=== PATIENT | male | born 1985 | race Caucasian/White ===

== ENCOUNTER 2018-02-21 13:59 | Emergency (ER) | payer SELFPAY ==
[2018-02-21 14:05] VITALS: BP 120/82
[2018-02-21 14:30] LABS: CLARITY,URINE CLOUDY; COLOR,URINE PINK
[2018-02-21 14:31] LABS: BACTERIA,URINE 0 /HPF (0-FEW); BILIRUBIN,URINE NEG (NEG); GLUCOSE,URINE NEG (NEG); NITRITE,URINE NEG (NEG); RBC,URINE TNTC /HPF (0-2); UROBILINOGEN,URINE 1 mg/dL (0.2 mg/dL); WBC,URINE OCC /HPF (0-4)
--- NOTE | 2018-02-21 15:45 | PHYS DOC ---
Past History Past Medical History: No Pertinent History Past Surgical History: No Surgical History Alcohol Use: None Drug Use: None Adult General Chief Complaint Chief Complaint: BLOOD IN URINE [facility] HPI 32-year-old male patient without medical problem who became sexually active for the last 2 days after released from shelter after several years complaining of sudden onset hematuria and urinary frequency for the last 1 hour pain in left lower quadrant with urination without nausea and vomiting, flank pain, penile discharge or pain, fever and chills. Patient complaining of chronic lower back pain. Review of Systems Review of Systems Constitutional: Denies fever or chills [] Eyes: Denies change in visual acuity, redness, or eye pain [] HENT: Denies nasal congestion or sore throat [] Respiratory: Denies cough or shortness of breath [] Cardiovascular: No additional information not addressed in HPI [] GI: Denies abdominal pain, nausea, vomiting, bloody stools or diarrhea [] : Denies dysuria or hematuria [] Musculoskeletal: Denies back pain or joint pain [] Integument: Denies rash or skin lesions [] Neurologic: Denies headache, focal weakness or sensory changes [] Endocrine: Denies polyuria or polydipsia [] All other systems were reviewed and found to be within normal limits, except as documented in this note. Physical Exam Physical Exam , bilateral external ears normal, oropharynx moist, no oral exudates, nose normal. [] Eyes: PERRLA, EOMI, conjunctiva normal, no discharge. [] Neck: Normal range of motion, no tenderness, supple, no stridor. [] Cardiovascular:Heart rate regular rhythm, no murmur [] Lungs & Thorax: Bilateral breath sounds clear to auscultation [] Abdomen: Bowel sounds normal, soft, no tenderness, no masses, no pulsatile masses, genital exam with present of residential program worker was unremarkable. [] Skin: Warm, dry, no erythema, no rash. [] Back: No tenderness, no CVA tenderness. [] Extremities: No tenderness, no cyanosis, no clubbing, ROM intact, no edema. [] Neurologic: Alert and oriented X 3, normal motor function, normal sensory function, no focal deficits noted. [] Psychologic: Affect normal, judgement normal, mood normal. [] Current Patient Data Vital Signs Vital Signs Date Time Temp Pulse Resp B/P (MAP) Pulse Ox O2 Delivery O2 Flow Rate FiO2 02/21/18 14:05 98.3 89 16 98 Room Air Lab Results Laboratory Tests Test 02/21/18 14:05 Urine Collection Type Void Urine Color [place] Urine Clarity Cloudy Urine pH 7.5 Urine Specific [place] 1.025 Urine Protein >100 mg/dl (NEG-TRACE) Urine Glucose (UA) Neg mg/dL (NEG) Urine Ketones (Stick) Neg mg/dL (NEG) Urine Blood Large (NEG) Urine Nitrite Neg (NEG) Urine Bilirubin Neg (NEG) Urine Urobilinogen Dipstick 1 mg/dL (0.2 mg/dL) Urine Leukocyte Esterase Small (NEG) Urine RBC Tntc /HPF (0-2) Urine WBC Occ /HPF (0-4) Urine Squamous Epithelial Cells None /LPF Urine Bacteria 0 /HPF (0-FEW) EKG EKG [] Radiology/Procedures Radiology/Procedures [[address] [address] IMAGING REPORT Signed PATIENT: BARRINGTON MARAVILLA ACCOUNT: [id number] : 1985 LOCATION: ER AGE: 32 SEX: M EXAM STATUS: PRE ER ORD. PHYSICIAN: MARY HALL MD REASON: hematuria PROCEDURE: CT ABDOMEN PELVIS WO CONTRAST PQRS Compliance Statement: One or more of the following individualized dose reduction techniques were utilized for this examination: 1. Automated exposure control 2. Adjustment of the mA and/or kV according to patient size 3. Use of iterative reconstruction technique CT ABDOMEN PELVIS WO CONTRAST Clinical Indication: hematuria, abdominal pain x1 day. Comparison: None. Technique: Helical CT imaging of the abdomen and pelvis is performed without IV or oral contrast. Findings: Evaluation of solid organs and bowel is limited without oral and IV contrast, decreasing sensitivity for detection of pathology. Lung bases are clear. Cardiac size normal. Calcified granulomas in the spleen. The liver, gallbladder, pancreas, adrenal glands, and abdominal aorta caliber are normal. Please note noncontrast CT is not sensitive for evaluation of pyelonephritis. There is no renal, ureteral, or bladder calculus. There is a 2 mm calcification centrally in the prostate just inferior to the bladder, cannot exclude that this is in the prostatic urethra, image 132. There is no hydronephrosis. Stomach unremarkable. No dilated small bowel. The appendix is normal caliber. No colon wall thickening. No abdominal adenopathy or free fluid. Urinary bladder wall is not thickened. Prostate size normal. No pelvic free fluid. Bilateral L5 spondylolysis. There is grade 1 anterolisthesis of L5 on S1. There is minimal grade 1 retrolisthesis of L4 on L5. IMPRESSION: 1. No hydronephrosis or ureteral calculus. There is a 2 mm calcification centrally in the prostate just inferior to the bladder. Cannot exclude that this is a calculus in the prostatic urethra. 2. Bilateral L5 spondylolysis. 3. The appendix is normal. Electronically signed by: Jordan Hansen MD (02/21/2018 3:47 PM) [facility] [place] DICTATED AND SIGNED BY: JORDAN HANSEN MD DATE: 02/21/18 1539 ] Course & Med Decision Making Course & Med Decision Making Pertinent Labs and Imaging studies reviewed. (See chart for details) Evaluation of patient in ER showed 32-year-old male patient with complaining of urinary frequency and hematuria. Patient had unremarkable physical exam and denied pain. Patient had hematuria without infection. CT of abdomen and pelvis was ordered and showed 2 mm stone in urethra. Patient states he passed some clot while he was in ER and felt better. Patient had history of STD and his current 6 chart partner had other partners recently therefore Rocephin and Zithromax was ordered in ER with pending urine results of GC chlamydia. Dragon Disclaimer Dragon Disclaimer This electronic medical record was generated, in whole or in part, using a voice recognition dictation system. Departure Departure: Impression: Primary Impression: Urethral stone Additional Impressions: Hematuria Tobacco abuse Tobacco abuse counseling Disposition: HOME, SELF-CARE (At 1615) Condition: IMPROVED Referrals: PCPBETTINA (PCP) Patient Instructions: Diet for Kidney Stones, Kidney Stones Additional Instructions: Drink plenty of liquids Follow-up with your primary care physician in 3-5 days Return to ER if not getting better Scripts Naproxen (NAPROSYN) 500 Mg Tablet 1 TAB PO BID, #20 TAB 1 Refill Prov: MARY HALL MD 02/21/18 Problem Qualifiers MARY HALL MD Feb 21, 2018 15:45
--- NOTE | 2018-02-21 15:51 | RAD ---
PQRS Compliance Statement: One or more of the following individualized dose reduction techniques were utilized for this examination: 1. Automated exposure control 2. Adjustment of the mA and/or kV according to patient size 3. Use of iterative reconstruction technique CT ABDOMEN PELVIS WO CONTRAST Clinical Indication: hematuria, abdominal pain x1 day. Comparison: None. Technique: Helical CT imaging of the abdomen and pelvis is performed without IV or oral contrast. Findings: Evaluation of solid organs and bowel is limited without oral and IV contrast, decreasing sensitivity for detection of pathology. Lung bases are clear. Cardiac size normal. Calcified granulomas in the spleen. The liver, gallbladder, pancreas, adrenal glands, and abdominal aorta caliber are normal. Please note noncontrast CT is not sensitive for evaluation of pyelonephritis. There is no renal, ureteral, or bladder calculus. There is a 2 mm calcification centrally in the prostate just inferior to the bladder, cannot exclude that this is in the prostatic urethra, image 132. There is no hydronephrosis. Stomach unremarkable. No dilated small bowel. The appendix is normal caliber. No colon wall thickening. No abdominal adenopathy or free fluid. Urinary bladder wall is not thickened. Prostate size normal. No pelvic free fluid. Bilateral L5 spondylolysis. There is grade 1 anterolisthesis of L5 on S1. There is minimal grade 1 retrolisthesis of L4 on L5. IMPRESSION: 1. No hydronephrosis or ureteral calculus. There is a 2 mm calcification centrally in the prostate just inferior to the bladder. Cannot exclude that this is a calculus in the prostatic urethra. 2. Bilateral L5 spondylolysis. 3. The appendix is normal. Electronically signed by: Jordan Roman MD (02/21/2018 3:47 PM) [facility] [place]
[2018-02-21] MEDS ORDERED: NAPR-683 PO (16:13)
[2018-02-21] MEDS: AZITHROMYCIN 250 MG TABLET. PO ONE (16:28)
[2018-02-21] MEDS: cefTRIAXone IM 250 MG VIAL IM ONE (16:28)
== END 2018-02-21 16:39 | disposition home or self-care (01) ==
LOC: ER 13:59
DX: N21.1 Calculus in urethra (principal); Z72.0 Tobacco use; Z71.6 Tobacco abuse counseling
CPT/HCPCS: 36415; 74176; 81001; 87086; 87491; 87591; 96372; 99285; J0456; J0696; 87186